=== PATIENT | female | born 1995 ===

== ENCOUNTER 2019-06-18 13:44 | Outpatient (CLI) | payer OTHER ==
--- NOTE | 2019-06-18 14:33 | ULT ---
BILATERAL BREAST ULTRASOUND: 06/18/19 HISTORY: 24-year-old female with bilateral palpable breast masses. FINDINGS/IMPRESSION: Sonographic evaluation of region of palpable concern at the 9 o'clock position of the right breast de monstrates a well circumscribed nonshadowing solid appearing mass with internal calcification measuri ng 2.6 x 1.6 x 2.1 cm. Similar mass without internal calcification is seen at the palpable region of the left breast at the 3 o'clock position measuring 2.4 x 1.7 x 2.1 cm. 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 If histological confirmation is not obtained wit h biopsy, a six month follow-up breast ultrasound should be performed. POS: [facility]
== END 2019-06-18 13:45 | disposition home or self-care (01) ==
LOC: BICULT 13:44
PROVIDERS: ATTEND Surgery
DX: N63.21 Unspecified lump in the left breast, upper outer quadrant (principal); N63.13 Unspecified lump in the right breast, lower outer quadrant; R92.1 Mammographic calcification found on diagnostic imaging of breast